=== PATIENT | male | born 1980 | race Hispanic/Latino ===

== ENCOUNTER 2023-07-12 23:22 | Emergency (ER) | payer SELFPAY ==
--- NOTE | ~2023-07-12 | XR_ITS ---
Clinical Indication: Chest pain PA and lateral views of the chest: Comparison: None Findings: The lungs are clear, without evidence of focal consolidation or pleural effusion. Cardiome diastinal silhouette is within normal limits. Bones and soft tissues are unremarkable. Impression: Normal chest. Reviewed, dictated and finalized at location . Impression: Normal chest.
--- NOTE | 2023-07-12 23:25 | ECG_ITS ---
Measurements Intervals [place] Rate: 110 P: 20 NE: 180 QRS: -26 QRSD: 100 T: 39 QT: 329 QTc: 445 Interpretive Statements SINUS TACHYCARDIA DELAYED PRECORDIAL R/S TRANSITION ABNORMAL ECG NO PREVIOUS ECG AVAILABLE FOR COMPARISON Electronically Signed On 07-13-2023 6:37:37 CDT by All Pickett D.O.
[2023-07-12 23:43] VITALS: BP 200/88; PULSE 88; RESP 16; TEMP 37; O2SAT 99
[2023-07-12 23:51] LABS: Basophils Absolute Auto 0.1 K/mm3 (0.0-0.1); Basophils Percent Auto 0.4 % (0.2-1.2); Eosinophils Absolute Auto 0.1 K/mm3 (0-0.3); Eosinophils Percent Auto 0.6 % (0-4.4); Hematocrit 43.8 % (42.0-52.0); Hemoglobin 15.5 g/dL (14.0-18.0); Immature Granulocyte Absolute 0.05 K/mm3 (0.00-0.031); Immature Granulocyte Percent A 0.4 % (0-0.5); Lymphocytes Percent Auto 45.2 % (18.3-44.2); Mean Corpuscular HGB Conc 35.4 g/dl (32-36); Mean Corpuscular Hemoglobin 32.2 pg (26-34); Mean Corpuscular Volume 91.1 fl (80-100); Mean Platelet Volume 9.4 fl (7.4-10.4); Monocytes Absolute Auto 0.9 K/mm3 (0.1-0.6); Monocytes Percent Auto 6.4 % (2.6-8.5); Neutrophils Absolute Auto 6.3 K/mm3 (1.3-6.7); Platelet Count Result 277 k/mm3 (150-375); Red Blood Count 4.81 M/mm3 (4.6-6.20); Red Cell Distribution Width 11.8 % (11.5-14.5); White Blood Count 13.5 K/mm3 (4.5-10.0)
[2023-07-13 00:02] LABS: INR 0.9; Prothrombin Time 12.5 Seconds (11.1-14.7)
[2023-07-13 00:03] LABS: Alanine Aminotransferase 33 U/L (6-50); Albumin Level 4.8 g/dL (3.5-5.1); Alkaline Phosphatase 109 U/L (38-126); Anion Gap 8 mmol/L (8-16); Aspartate Amino Transferase 29 U/L (17-59); Bilirubin,Total 0.5 mg/dL (0.2-1.3); Blood Urea Nitrogen 18 mg/dL (9-20); Calcium 8.9 mg/dL (8.4-10.2); Carbon Dioxide 26 mmol/L (22-30); Chloride 104 mmol/L (98-107); Estimated CRCL calculation 115 ml/min; Estimated Glomerular Filt Rate > 60; Glucose 116 mg/dL (65-110); Lipase 74 U/L (23-300); Partial Thromboplastin Time 24.6 SECONDS (22.3-36.8); Potassium 3.4 mmol/L (3.4-5.0); Sodium 138 mmol/L (137-145)
[2023-07-13 00:15] LABS: Troponin I < 0.012 ng/mL (0.000-0.034)
[2023-07-13 01:47] VITALS: PULSE 106
[2023-07-13 02:00] VITALS: BP 144/96; PULSE 100; RESP 16; O2SAT 96
[2023-07-13 02:52] VITALS: BP 144/90; PULSE 95; RESP 17; O2SAT 96
[2023-07-13 04:02] LABS: Troponin I < 0.012 ng/mL (0.000-0.034)
--- NOTE | 2023-07-13 05:28 | ED.CHESTPAIN ---
HPI - Chest Pain General Chief Complaint: Chest Pain Stated Complaint: high blood pressure Time Seen by Provider: 07/13/23 05:27 Source: patient Limitations: no limitations History of Present Illness HPI narrative: Patient is a 43-year-old male presented to the emergency department for high blood pressure. Patient states that he felt ?off? throughout the day and went to [employer] to check his blood pressure and noted that it was elevated prompting him to seek further care in the emergency department today. Patient is able to walk more frequently to check his blood pressure and he does not see a primary care physician on regular basis. Patient denies any family history of her disease. Patient denies tobacco use. Patient denies shortness of breath, abdominal pain, nausea, vomiting, diaphoresis, recent illness, recent injuries, history of any medication use. Patient had any specific chest pain and when asked about any means by failure of patient describes it is more of a feeling of anxiety and is if something just was not right. Patient denies vision changes, difficulty urinating, decreased tear production, hematuria, cough, lower extremity swelling, orthopnea, fever, palpitations, headache, numbness, weakness, paresthesias, or rash. 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 Patient has never seen a instructional services specialist. Never been treated fro blood pressure being high before. He tried garlic hoping that would help his blood pressure. Related Data Allergies Allergy/AdvReac Type Severity Reaction Status Date / Time No Known Allergies Allergy Verified 07/13/23 01:48 Review of Systems Review of Systems: A 10 system review of systems was completed on the patient and is negative except for what is stated in the HPI. Nursing and ancillary documentation was reviewed. PMFSH Comments At time of signature, I have reviewed and agree with nursing past medical, surgical, social and family history unless otherwise noted. Please see the nursing chart for further information. There is no relevant family history pertinent to the presenting complaint. Exam Narrative: CONST: No acute distress. Well nourished. HENMT: Head is normocephalic and atraumatic. Moist mucous membranes. No posterior oropharynx erythema. EYES: No conjunctival icterus, injection, or pallor. PERRL. NECK: No meningeal signs. No JVD. RESP: Able to speak in full sentences. Normal respiratory effort. CTAB. CARDIO: Regular rate. Regular rhythm. 2+ DP and radial pulses bilaterally. GI: Nondistended. No tenderness to palpation. Soft. : No CVA tenderness to palpation. SKIN: No rashes or lesions noted on exposed skin. NEURO: Oriented x3. Moves all extremities. EXTREM: No pedal edema. PSYCH: Normal affect. Course Vital Signs Vital signs: Vital Signs Temperature 98.6 F 07/12/23 23:43 Pulse Rate 88 07/12/23 23:43 Respiratory Rate 16 07/12/23 23:43 Blood Pressure 200/88 H 07/12/23 23:43 Pulse Oximetry 99 07/12/23 23:43 Oxygen Delivery Room Air 07/12/23 23:43 Temperature 98.6 F 07/12/23 23:43 Pulse Rate 86 07/13/23 06:25 Respiratory Rate 17 07/13/23 02:52 Blood Pressure 139/99 H 07/13/23 06:25 Pulse Oximetry 98 07/13/23 06:25 Oxygen Delivery Room Air 07/13/23 01:47 MDM - Chest Pain MDM Narrative Medical decision making narrative: Patient presented to the emergency department complaining of high blood pressure. Initial vitals are remarkable for hypertension. Patient mentioned chest pain to triage nurse and therefore a cardiac work up was done. Patient is otherwise asymptomatic without confusion, chest pain, hematuria, or SOB. BP today was much improved after initial vitals and patient is resting comfortably with no chest pain on my assessment. Patient is not
[2023-07-13 06:05] VITALS: BP 139/99; PULSE 86; O2SAT 98
[2023-07-13 06:25] VITALS: BP 139/99; PULSE 86; O2SAT 98
== END 2023-07-13 06:24 | disposition home or self-care (01) ==
PROVIDERS: Emergency Provider Student in an Organized Health Care Education/Training Program
DX: I10 Essential (primary) hypertension (principal); R07.89 Other chest pain; R00.0 Tachycardia, unspecified
CPT/HCPCS: 36415; 71046; 80053; 83690; 84484; 85025; 85610; 85730; 93005; 99284

== ENCOUNTER 2024-08-15 00:54 | Emergency (ER) | payer SELFPAY ==
--- NOTE | ~2024-08-15 | XR_ITS ---
EXAMINATION: XR chest 1V portable DATE: 08/15/2024 02:32 INDICATION: Shortness of breath. Right chest pain. TECHNIQUE: A single frontal view of the chest was obtained. COMPARISON: Chest 2 views 07/12/2023 FINDINGS: There is no pneumonia, pleural effusion, or pneumothorax. The heart size is normal. IMPRESSION: 1. No acute cardiopulmonary disease. Reviewed, dictated and finalized at location A.
[2024-08-15 01:00] VITALS: BP 166/98; PULSE 88; RESP 16; TEMP 36.4; O2SAT 100
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
--- NOTE | 2024-08-15 02:36 | ECG_ITS ---
Test Date: 2024-08-15 02:48:43 Measurements Intervals [place] Rate: 75 P: 17 HI: 194 QRS: -4 QRSD: 104 T: 22 QT: 365 QTc: 410 Interpretive Statements SINUS RHYTHM No previous ECG available for comparison Electronically Signed On 08-15-2024 09:43:44 CDT by Elias Cotto M.D.
[2024-08-15 03:04] LABS: Basophils Percent Auto 0.5 % (0.2-1.2); Eosinophils Absolute Auto 0.1 K/mm3 (0-0.3); Eosinophils Percent Auto 0.6 % (0-4.4); Hematocrit 41.9 % (42.0-52.0); Hemoglobin 14.6 g/dL (14.0-18.0); Immature Granulocyte Absolute 0.02 K/mm3 (0.00-0.031); Immature Granulocyte Percent A 0.2 % (0-0.5); Lymphocytes Absolute Auto 3.25 K/mm3 (0.9-3.2); Lymphocytes Percent Auto 38.2 % (18.3-44.2); Mean Corpuscular HGB Conc 34.8 g/dl (32-36); Mean Corpuscular Hemoglobin 31.7 pg (26-34); Mean Corpuscular Volume 90.9 fl (80-100); Mean Platelet Volume 9.7 fl (7.4-10.4); Monocytes Absolute Auto 0.6 K/mm3 (0.1-0.6); Monocytes Percent Auto 7.2 % (2.6-8.5); Neutrophils Absolute Auto 4.5 K/mm3 (1.3-6.7); Neutrophils Percent Auto 53.3 % (45.5-73.1); Platelet Count Result 242 k/mm3 (150-375); Red Blood Count 4.61 M/mm3 (4.6-6.20); Red Cell Distribution Width 11.9 % (11.5-14.5); White Blood Count 8.5 K/mm3 (4.5-10.0)
[2024-08-15 03:19] LABS: Alanine Aminotransferase 33 U/L (6-50); Albumin Level 4.4 g/dL (3.5-5.1); Alkaline Phosphatase 78 U/L (38-126); Anion Gap 9 mmol/L (4-12); Aspartate Amino Transferase 24 U/L (17-59); Bilirubin,Total 0.4 mg/dL (0.2-1.3); Blood Urea Nitrogen 16 mg/dL (9-20); Calcium 9.3 mg/dL (8.4-10.2); Carbon Dioxide 27 mmol/L (22-30); Chloride 103 mmol/L (98-107); Estimated CRCL calculation 126 ml/min; Estimated Glomerular Filt Rate > 60; Glucose 95 mg/dL (65-110); Magnesium 2.2 mg/dL (1.6-2.3); Potassium 3.8 mmol/L (3.4-5.0); Sodium 139 mmol/L (137-145)
[2024-08-15 03:33] LABS: Troponin I < 0.012 ng/mL (0.000-0.034)
[2024-08-15 03:40] VITALS: RESP 16; O2SAT 98
[2024-08-15 03:59] VITALS: BP 108/77; PULSE 86; RESP 18; O2SAT 98
== END 2024-08-15 04:00 | disposition home or self-care (01) ==
PROVIDERS: Emergency Provider Emergency Medicine
DX: S16.1XXA Strain of muscle, fascia and tendon at neck level, initial encounter (principal); M50.20 Other cervical disc displacement, unspecified cervical region; V89.2XXD Person injured in unspecified motor-vehicle accident, traffic, subsequent encounter
CPT/HCPCS: 36415; 71045; 80053; 83735; 84484; 85025; 93005; 99284

== ENCOUNTER 2024-10-21 19:21 | Emergency (ER) | payer SELFPAY ==
--- NOTE | ~2024-10-21 | XR_ITS ---
XR chest 2V Ordering provider: Dayday Hraman History: 44 years Male with . cp . Comparison: August 15, 2024 FINDINGS: MEDIASTINUM: The cardiac silhouette is not enlarged. LUNGS: No effusions or pneumothorax. Minimal opacification in the left and right lung base medially i s seen which may indicate atelectasis versus pneumonia. OTHER: No free air under the diaphragm. IMPRESSION: Bibasilar atelectasis versus pneumonia. Reviewed, dictated and finalized at location A. R
[2024-10-21 19:42] VITALS: BP 167/90; PULSE 121; RESP 15; TEMP 36.9; O2SAT 99
--- NOTE | 2024-10-21 19:47 | ECG_ITS ---
Test Date: 2024-10-21 19:50:53 Measurements Intervals [place] Rate: 132 P: 37 UT: 148 QRS: -80 QRSD: 93 T: 34 QT: 294 QTc: 437 Interpretive Statements SINUS TACHYCARDIA LEFT ANTERIOR FASCICULAR BLOCK [QRS AXIS <= -45, QR IN I, RS IN II] POSSIBLE ANTERIOR MYOCARDIAL INFARCTION , OF INDETERMINATE AGE [30 ms Q WAVE IN V3/V4, OR R < 0.2 mV IN V4] Compared to ECG 08/15/2024 02:48:43 Left anterior fascicular block now present Myocardial infarct finding now present Sinus rhythm no longer present Electronically Signed On 10-22-2024 22:54:13 OPHTHALMIC NURSE by Rosina Lyons M.D.
[2024-10-21 20:02] LABS: Basophils Percent Auto 0.1 % (0.2-1.2); Hemoglobin 15.7 g/dL (14.0-18.0); Immature Granulocyte Absolute 0.04 K/mm3 (0.00-0.031); Immature Granulocyte Percent A 0.4 % (0-0.5); Lymphocytes Percent Auto 13.2 % (18.3-44.2); Mean Corpuscular HGB Conc 35.7 g/dl (32-36); Mean Corpuscular Volume 89.8 fl (80-100); Mean Platelet Volume 9.5 fl (7.4-10.4); Monocytes Absolute Auto 0.1 K/mm3 (0.1-0.6); Monocytes Percent Auto 1.1 % (2.6-8.5); Neutrophils Absolute Auto 9.7 K/mm3 (1.3-6.7); Neutrophils Percent Auto 85.2 % (45.5-73.1); Platelet Count Result 281 k/mm3 (150-375); Red Cell Distribution Width 12.1 % (11.5-14.5); White Blood Count 11.3 K/mm3 (4.5-10.0)
[2024-10-21 20:18] LABS: INR 0.9; Prothrombin Time 12.4 Seconds (11.1-14.7)
[2024-10-21 20:19] LABS: Partial Thromboplastin Time 23.3 Seconds (22.3-36.8)
[2024-10-21 20:27] LABS: Alanine Aminotransferase 35 U/L (6-50); Albumin Level 4.8 g/dL (3.5-5.1); Alkaline Phosphatase 134 U/L (38-126); Anion Gap 9 mmol/L (4-12); Aspartate Amino Transferase 26 U/L (17-59); Bilirubin,Total 0.6 mg/dL (0.2-1.3); Blood Urea Nitrogen 18 mg/dL (9-20); Calcium 9.8 mg/dL (8.4-10.2); Carbon Dioxide 22 mmol/L (22-30); Chloride 108 mmol/L (98-107); Estimated CRCL calculation 101 ml/min; Estimated Glomerular Filt Rate > 60; Glucose 259 mg/dL (65-110); Lipase 74 U/L (23-300); Potassium 4.3 mmol/L (3.4-5.0); Sodium 139 mmol/L (137-145)
[2024-10-21 20:35] LABS: Troponin I < 0.012 ng/mL (0.000-0.034)
--- NOTE | 2024-10-21 23:32 | PC.NURSE ---
Pt ambulated to director of front office and stated he feels better and is going to leave.
== END 2024-10-22 00:58 | disposition left against medical advice (07) ==
LOC: ANHED 10-22 00:04
PROVIDERS: Emergency Provider Emergency Medicine
DX: R73.9 Hyperglycemia, unspecified (principal)
CPT/HCPCS: 36415; 71046; 80053; 83690; 84484; 85025; 85610; 85730; 93005; 99199

== ENCOUNTER 2025-01-09 02:46 | Emergency (ER) | payer SELFPAY ==
--- NOTE | ~2025-01-09 | CT_ITS ---
CT of the Abdomen and Pelvis: Indication: Abdominal pain Technique: 2.5 mm axial scans were obtained through the abdomen and pelvis following intravenous adm inistration of 100 cc of Omnipaque 350. Dose reduction technique was used on this scan by utilizing a utomated exposure control and iterative reconstruction technique. The dose-length product (DLP) was 9 04.85 mGy-cm. Findings: Scans through the lung bases are unremarkable. The liver, spleen, pancreas, gallbladder, adrenals and kidneys are within normal limits. No evidence of aortic aneurysm. No lymphadenopathy. No bowel obstruction or bowel wall thickening. There is no evidence to suggest acute appendicitis. Images through the pelvis were performed. Urinary bladder unremarkable. No pelvic mass seen. No ascit es. Impression: No significant abnormalities seen. Reviewed, dictated and finalized at location . Impression: No significant abnormalities seen.
[2025-01-09 02:47] VITALS: BP 164/98; PULSE 111; RESP 18; TEMP 36.4; O2SAT 97
[2025-01-09 03:01] LABS: Basophils Absolute Auto 0.1 K/mm3 (0.0-0.1); Basophils Percent Auto 0.4 % (0.2-1.2); Eosinophils Absolute Auto 0.1 K/mm3 (0-0.3); Hematocrit 44.9 % (42.0-52.0); Hemoglobin 15.7 g/dL (14.0-18.0); Immature Granulocyte Absolute 0.04 K/mm3 (0.00-0.031); Immature Granulocyte Percent A 0.3 % (0-0.5); Lymphocytes Absolute Auto 5.13 K/mm3 (0.9-3.2); Lymphocytes Percent Auto 40.8 % (18.3-44.2); Mean Corpuscular Hemoglobin 31.5 pg (26-34); Mean Platelet Volume 9.1 fl (7.4-10.4); Monocytes Absolute Auto 0.7 K/mm3 (0.1-0.6); Monocytes Percent Auto 5.7 % (2.6-8.5); Neutrophils Absolute Auto 6.5 K/mm3 (1.3-6.7); Neutrophils Percent Auto 51.8 % (45.5-73.1); Platelet Count Result 303 k/mm3 (150-375); Red Blood Count 4.99 M/mm3 (4.6-6.20); Red Cell Distribution Width 11.8 % (11.5-14.5); White Blood Count 12.6 K/mm3 (4.5-10.0)
[2025-01-09 03:16] LABS: Alanine Aminotransferase 48 U/L (6-50); Albumin Level 4.6 g/dL (3.5-5.1); Alkaline Phosphatase 114 U/L (38-126); Anion Gap 15 mmol/L (4-12); Aspartate Amino Transferase 27 U/L (17-59); Bilirubin,Total 0.4 mg/dL (0.2-1.3); Blood Urea Nitrogen 13 mg/dL (9-20); Calcium 9.1 mg/dL (8.4-10.2); Carbon Dioxide 22 mmol/L (22-30); Chloride 103 mmol/L (98-107); Estimated Glomerular Filt Rate > 60; Glucose 121 mg/dL (65-110); Lipase 97 U/L (23-300); Potassium 3.5 mmol/L (3.4-5.0); Sodium 140 mmol/L (137-145)
[2025-01-09] MEDS: DICYCLOMINE HCL INJ 20 MG/2 ML VIAL IM (04:01)
[2025-01-09] MEDS: ONDANSETRON INJ 4 MG/2 ML VIAL IV PUSH (04:01)
[2025-01-09] MEDS: SODIUM CHLORIDE 0.9% IV 1,000 ML 999 ML IV CONT (04:02)
[2025-01-09 04:06] VITALS: BP 134/90; PULSE 92; RESP 15; O2SAT 96
--- NOTE | 2025-01-09 04:16 | ED.GENADULT ---
HPI - General Adult General Chief complaint: Nausea/Vomiting/Diarrhea Stated complaint: diarrhea Time Seen by Provider: 01/09/25 03:34 History of Present Illness HPI narrative: Patient is a 44-year-old gentleman who presents emergency department with chief complaint of diarrhea. The patient reports that about a week ago he had an episode of diarrhea and then reports that today he started having small amount episodes of loose stools the patient states he feels though he needs to go to the bathroom has a small amount of liquid stool and then the bowel movement will stop patient states he has a cramping like sensation throughout his abdomen reports he is little uncomfortable in the right lower quadrant Related Data Allergies Allergy/AdvReac Type Severity Reaction Status Date / Time No Known Allergies Allergy Verified 10/21/24 19:48 Review of Systems Review of Systems: A 10 system review of systems was completed on the patient and is negative except for what is stated in the HPI. Nursing and ancillary documentation was reviewed. Exam Narrative: GENERAL: Well-appearing, well-nourished, and in no acute distress. HEAD: Normocephalic, atraumatic. EYES: PERRLA and EOMI. ENT: Nares clear, no rhinorrhea or epistaxis. Mucous membranes moist. NECK: Supple. CHEST: Clear to auscultation. No respiratory distress. HEART: Regular rate and rhythm. No murmur heard. Normal peripheral pulses. ABDOMEN: Soft, mild tenderness to palpation right lower quadrant, nondistended, normal active bowel sounds. : Hemorrhoids present that are nonthrombosed EXTREMITIES: Normal range of motion. No edema. SKIN: Warm, dry, no rash. NEURO: No focal deficits. Alert and oriented x3. PSYCH: Normal mood and affect. Course Vital Signs Vital signs: Vital Signs Temperature 36.4 C 01/09/25 02:47 Pulse Rate 111 H 01/09/25 02:47 Respiratory Rate 18 01/09/25 02:47 Blood Pressure 164/98 H 01/09/25 02:47 Pulse Oximetry 97 01/09/25 02:47 Oxygen Delivery Room Air 01/09/25 02:47 Temperature 36.4 C 01/09/25 02:47 Pulse Rate 92 01/09/25 04:06 Respiratory Rate 15 01/09/25 04:06 Blood Pressure 134/90 01/09/25 04:06 Pulse Oximetry 96 01/09/25 04:06 Oxygen Delivery Room Air 01/09/25 02:47 Medical Decision Making [facility] Narrative Medical decision making narrative: Differential diagnosis includes intra-abdominal infection, diverticulitis, colitis, Laboratory studies were obtained showed normal CBC with white count 12.6 electrolytes are within normal limits CT scan of the abdomen pelvis showed no acute abnormality The patient be discharged home with a prescription Bentyl Vital Signs Vital Signs: Vital Signs Temperature 36.4 C 01/09/25 02:47 Pulse Rate 111 H 01/09/25 02:47 Respiratory Rate 18 01/09/25 02:47 Blood Pressure 164/98 H 01/09/25 02:47 Pulse Oximetry 97 01/09/25 02:47 Oxygen Delivery Room Air 01/09/25 02:47 Temperature 36.4 C 01/09/25 02:47 Pulse Rate 92 01/09/25 04:06 Respiratory Rate 15 01/09/25 04:06 Blood Pressure 134/90 01/09/25 04:06 Pulse Oximetry 96 01/09/25 04:06 Oxygen Delivery Room Air 01/09/25 02:47 Lab Data 01/09/25 02:54 01/09/25 02:54 Labs: Lab Results 01/09/25 01/09/25 Range/Units 02:54 05:06 WBC 12.6 H (4.5-10.0) K/mm3 RBC 4.99 (4.6-6.20) M/mm3 Hgb 15.7 (14.0-18.0) g/dL Hct 44.9 (42.0-52.0) % MCV 90.0 (80-100) fl MCH 31.5 (26-34) pg MCHC 35.0 (32-36) g/dl RDW 11.8 (11.5-14.5) % Plt Count 303 (150-375) k/mm3 MPV 9.1 (7.4-10.4) fl Immature Gran % (Auto) 0.3 (0-0.5) % Neut % (Auto) 51.8 (45.5-73.1) % Lymph % (Auto) 40.8 (18.3-44.2) % Door % (Auto) 5.7 (2.6-8.5) % Eos % (Auto) 1.0 (0-4.4) % Baso % (Auto) 0.4 (0.2-1.2) % Lymph # (Auto) 5.13 H (0.9-3.2) K/mm3 Door # (Auto) 0.7 H (0.1-0.6) K/mm3 Eos # (Auto) 0.1 (0-0.3) K/mm3 Baso # (Auto) 0.1 (0.0-0.1) K/mm3 Abs Immat Gran (auto) 0.04 H (0.00-0.031) K/mm3 Absolute Neuts (auto) 6.5 (1.3-6.7) K/mm3 Absolute Nucleated RBC 0.000 (0.0-0.012) K/mm3 Nucleated RBC % 0.0 (0.0-0.2) % Sodium 140 (137-145) mmol/L Potassium 3.5 (3.4-5.0) mmol/L Chloride 103 (98-107) mmol/L Carbon Dioxide 22 (22-30) mmol/L Anion Gap 15 H (4-12) mmol/L BUN 13 D (9-20) mg/dL Creatinine 0.91 (0.7-1.3) mg/dL Estim Creat Clear Calc Not Reportable Estimated GFR > 60 (59 - ) Glucose 121 H (65-110) mg/dL Calcium 9.1 (8.4-10.2) mg/dL Total Bilirubin 0.4 (0.2-1.3) mg/dL AST 27 (17-59) U/L ALT 48 (6-50) U/L Alkaline Phosphatase 114 (38-126) U/L Total Protein 8.0 (6.3-8.2) g/dL Albumin 4.6 (3.5-5.1) g/dL Lipase 97 (23-300) U/L Urine Color Yellow (Yellow) Urine Appearance Clear (Clear) Urine pH 5.5 (5.0-9.0) Ur Specific Equality 1.021 (1.001-1.035) Urine Protein Trace (Negative) mg/dL Urine Glucose (UA) Negative (Negative) mg/dL Urine Ketones Trace H (Negative) mg/dL Ur Blood (Man) Negative (Negative) Urine Nitrate Negative (Negative) Urine Bilirubin Negative (Negative) Urine Urobilinogen 0.2 (<2.0) mg/dL Leukocyte Esterase Rfl Negative (Negative) ELLA/UL Urine RBC 0-2 (0-2) /hpf Urine WBC 0-5 (0-3) /hpf Ur Squamous Epith Cells None seen (Few) /hpf Urine Bacteria None seen /hpf Urine Casts 0-2 Discharge Plan Discharge Clinical Impression: Abdominal pain, Diarrhea, Hemorrhoids Patient Disposition: Home, Self-Care Condition: Stable Instructions: Antibiotic Form, Hemorrhoids (ED), Acute Diarrhea (ED), Abdominal Pain (ED) Patient Language: Portuguese Prescriptions: New dicyclomine 20 mg tablet 20 mg PO QID PRN (Reason: abdominal discomfort) Qty: 20 0RF hydrocortisone acetate 25 mg suppository 25 mg RECTAL BID Qty: 24 0RF No Action hydrocodone-acetaminophen 5-325 mg tablet 1 tablet PO Q8H PRN (Reason: pain) Qty: 10 0RF methocarbamol 750 mg tablet 750 mg PO HS PRN (Reason: muscle pain) Qty: 14 0RF Follow-up/Referrals: Boom Mello MD [Physician] - PHYSICIAN,BRANCH ACCOUNT MANAGER [Primary Care Provider] - Time of Disposition: 06:21
[2025-01-09 05:19] LABS: Add Urine Microscopic? YES; Appearance Urine Clear (Clear); Bacteria Urine None Seen /hpf; Bilirubin Urine Negative (Negative); Blood Urine Negative (Negative); Color Urine Yellow (Yellow); Glucose Urine UA Negative (Negative); Ketones Urine Trace mg/dL (Negative); Leukocyte Esterase Ur Negative LEU/UL (Negative); Nitrate Urine Negative (Negative); Non Pathogenic Casts 0-2; Protein Urine Trace mg/dL (Negative); RBC Urine 0-2 /hpf (0-2); Specific Grav Ur 1.021 (1.001-1.035); Squamous Epithelial Cell Urine None Seen /hpf (Few); Urobilinogen Urine 0.2 mg/dL (<2.0); WBC Urine 0-5 /hpf (0-3); pH Urine 5.5 (5.0-9.0)
[2025-01-09 07:07] VITALS: BP 126/72; PULSE 67; RESP 16; O2SAT 100
== END 2025-01-09 07:08 | disposition home or self-care (01) ==
PROVIDERS: Emergency Provider Emergency Medicine
DX: R19.7 Diarrhea, unspecified (principal); K64.9 Unspecified hemorrhoids; R10.31 Right lower quadrant pain
CPT/HCPCS: 36415; 74177; 80053; 81001; 83690; 85025; 96361; 96372; 96374; 99284; J0500; J2405; J7030; Q9967

== ENCOUNTER 2025-03-31 22:58 | Emergency (ER) | payer SELFPAY ==
--- NOTE | ~2025-03-31 | XR_ITS ---
XR chest 2V Ordering provider: Darwin Springer MD History: 45 years Male with . cp . Comparison: October 21, 2024 FINDINGS: MEDIASTINUM: The cardiac silhouette is not enlarged. LUNGS: No infiltrates, effusions or pneumothorax. OTHER: No free air under the diaphragm. IMPRESSION: No acute cardiopulmonary pathology. Reviewed, dictated and finalized at location A.
[2025-03-31 23:00] VITALS: BP 144/94; PULSE 95; RESP 16; TEMP 36.3; O2SAT 100
--- NOTE | 2025-03-31 23:02 | ECG_ITS ---
Test Date: 2025-03-31 23:10:47 Measurements Intervals [place] Rate: 88 P: 7 IN: 165 QRS: 96 QRSD: 97 T: -7 QT: 346 QTc: 419 Interpretive Statements SINUS RHYTHM RIGHT AXIS DEVIATION INCOMPLETE RIGHT BUNDLE [place]AN[place] BLOCK BORDERLINE R WAVE PROGRESSION, ANTERIOR LEADS MINIMAL Q WAVES- INFERIOR LEADS BORDERLINE ST-T WAVE ABNORMALITY- INFERIOR LEADS BORDERLINE ECG Compared to ECG 10/21/2024 19:50:53 HEART RATE HAS DECREASED Electronically Signed On 04-01-2025 06:25:22 CDT by All Pickett D.O.
[2025-03-31 23:42] VITALS: BP 120/89; O2SAT 97
[2025-03-31 23:46] VITALS: BP 134/95; PULSE 87; RESP 15; O2SAT 98
[2025-03-31 23:48] LABS: Basophils Absolute Auto 0.1 K/mm3 (0.0-0.1); Basophils Percent Auto 0.5 % (0.2-1.2); Eosinophils Absolute Auto 0.1 K/mm3 (0-0.3); Eosinophils Percent Auto 0.7 % (0-4.4); Hematocrit 42.9 % (42.0-52.0); Immature Granulocyte Absolute 0.02 K/mm3 (0.00-0.031); Immature Granulocyte Percent A 0.2 % (0-0.5); Lymphocytes Absolute Auto 3.98 K/mm3 (0.9-3.2); Lymphocytes Percent Auto 39.1 % (18.3-44.2); Mean Corpuscular Hemoglobin 31.2 pg (26-34); Mean Corpuscular Volume 89.2 fl (80-100); Mean Platelet Volume 9.4 fl (7.4-10.4); Monocytes Absolute Auto 0.7 K/mm3 (0.1-0.6); Monocytes Percent Auto 6.7 % (2.6-8.5); Neutrophils Absolute Auto 5.4 K/mm3 (1.3-6.7); Neutrophils Percent Auto 52.8 % (45.5-73.1); Platelet Count Result 259 k/mm3 (150-375); Red Blood Count 4.81 M/mm3 (4.6-6.20); White Blood Count 10.2 K/mm3 (4.5-10.0)
[2025-04-01] VITALS (8 sets, daily range): BP systolic 118–129; BP diastolic 82–94; PULSE 80–88; RESP 12–17; TEMP 36.4; O2SAT 96–97
[2025-04-01 00:07] LABS: Alanine Aminotransferase 39 U/L (6-50); Albumin Level 4.6 g/dL (3.5-5.1); Alkaline Phosphatase 98 U/L (38-126); Anion Gap 9 mmol/L (4-12); Aspartate Amino Transferase 28 U/L (17-59); Bilirubin,Total 0.4 mg/dL (0.2-1.3); Blood Urea Nitrogen 14 mg/dL (9-20); Calcium 9.3 mg/dL (8.4-10.2); Carbon Dioxide 23 mmol/L (22-30); Chloride 106 mmol/L (98-107); Estimated CRCL calculation 117 ml/min; Estimated Glomerular Filt Rate > 60; Glucose 106 mg/dL (65-110); Lipase 80 U/L (23-300); Potassium 3.8 mmol/L (3.4-5.0); Sodium 138 mmol/L (137-145); Total Protein 7.7 g/dL (6.3-8.2)
[2025-04-01 00:10] LABS: INR 0.9; Prothrombin Time 12.2 Seconds (11.1-14.7)
[2025-04-01 00:11] LABS: Partial Thromboplastin Time 24.4 Seconds (22.3-36.8)
[2025-04-01 00:19] LABS: Troponin I < 0.012 ng/mL (0.000-0.034)
--- NOTE | 2025-04-01 01:14 | ED.CHESTPAIN ---
HPI - Chest Pain General Chief Complaint: Chest Pain Stated Complaint: L chest pain Time Seen by Provider: 03/31/25 23:56 Source: patient Mode of arrival: ambulatory Limitations: no limitations History of Present Illness HPI narrative: Patient is a 45-year-old male who presents to the ED with c/o CP. Patient reports CP began around 6pm tonight after eating spicy [place] food. Present throughout his left-sided chest. Denies radiation of the pain. Pain has been fairly persistent since the onset. He attempted taking an antacid in Tylenol at home without improvement, which prompted his presentation. Denies history of similar pain. Denies previous heart disease. Is on medication for high blood pressure, denies history of diabetes, cholesterol, smoking. Denies family history of heart disease. Denies abdominal pain, nausea, vomiting, shortness of breath, pain or swelling in legs. Related Data Allergies Allergy/AdvReac Type Severity Reaction Status Date / Time No Known Allergies Allergy Verified 04/01/25 00:08 Review of Systems Review of Systems: All systems reviewed & are unremarkable except as noted in HPI. All systems reviewed & are unremarkable except as noted in HPI and below Exam Narrative: GENERAL: Well appearing, obese with BMI of 31.3, non-toxic, in no acute distress. HEAD: Normocephalic, atraumatic. RESPIRATORY: Airway patent, respirations nonlabored. Clear to auscultation bilaterally, no rales, rhonchi, wheezing. CARDIOVASCULAR: Regular rate and rhythm without murmurs, rubs, or gallops. ABDOMINAL: Soft, nontender, nondistended. Normoactive BS. MUSCULOSKELETAL: Moves all extremities. No gross deformities. Very mild TTP over L anterior chest wall. No peripheral edema. No calf tenderness. SKIN: Warm, dry, normal color. NEURO: A&O X3. Speech clear. Cranial nerves II-XII grossly intact. Steady gait. No ataxic movements. PSYCHIATRIC: Appropriate mood and affect. Normal interaction. Course Vital Signs Vital signs: Vital Signs Temperature 97.4 F L 03/31/25 23:00 Pulse Rate 95 03/31/25 23:00 Respiratory Rate 16 03/31/25 23:00 Blood Pressure 144/94 H 03/31/25 23:00 Pulse Oximetry 100 03/31/25 23:00 Oxygen Delivery Room Air 03/31/25 23:00 Temperature 97.6 F 04/01/25 00:01 Pulse Rate 80 04/01/25 03:01 Respiratory Rate 12 04/01/25 03:01 Blood Pressure 118/85 04/01/25 03:01 Pulse Oximetry 97 04/01/25 03:01 Oxygen Delivery Room Air 04/01/25 00:04 MDM - Chest Pain MDM Narrative Medical decision making narrative: EKG with sinus rhythm, incomplete right bundle. No significant concerning ischemic changes. Baseline troponin undetectable. Chest x-ray is clear. Basic laboratory studies are otherwise unremarkable. PERC negative. Denying any SOB. No tachycardia, hypoxia, tachypnea. No evidence of DVT on exam. Low suspicion for VTE. HEART score =1 based on RFs (BMI, HTN) Patient given GI cocktail in the ED, reported improvement, was sleeping on reevaluation. 3 hour troponin also undetectable. Low suspicion for ACS at this time. Patient safe for discharge home at this time, recommended close follow-up with PCP and/or Cardiology as outpatient for further evaluation. Given strict return precautions. Patient is in agreement with plan. Feels comfortable going home. Discharged in stable condition. Medical Records Data Attestation: I reviewed the patient's medical records. Lab Data Attestation: I reviewed the patient's lab results. 03/31/25 23:43 03/31/25 23:42 Labs: Lab Results 03/31/25 03/31/25 04/01/25 Range/Units 23:42 23:43 02:26 WBC 10.2 H (4.5-10.0) K/mm3 RBC 4.81 (4.6-6.20) M/mm3 Hgb 15.0 (14.0-18.0) g/dL Hct 42.9 (42.0-52.0) % MCV 89.2 (80-100) fl MCH 31.2 (26-34) pg MCHC 35.0 (32-36) g/dl RDW 12.0 (11.5-14.5) % Plt Count 259 (150-375) k/mm3 MPV 9.4 (7.4-10.4) fl Immature Gran % (Auto) 0.2 (0-0.5) % Neut % (Auto) 52.8 (45.5-73.1) % Lymph % (Auto) 39.1 (18.3-44.2) % [place] % (Auto) 6.7 (2.6-8.5) % Eos % (Auto) 0.7 (0-4.4) % Baso % (Auto) 0.5 (0.2-1.2) % Lymph # (Auto) 3.98 H (0.9-3.2) K/mm3 [place] # (Auto) 0.7 H (0.1-0.6) K/mm3 Eos # (Auto) 0.1 (0-0.3) K/mm3 Baso # (Auto) 0.1 (0.0-0.1) K/mm3 Abs Immat Gran (auto) 0.02 (0.00-0.031) K/mm3 Absolute Neuts (auto) 5.4 (1.3-6.7) K/mm3 Absolute Nucleated RBC 0.000 (0.0-0.012) K/mm3 Nucleated RBC % 0.0 (0.0-0.2) % PT 12.2 (11.1-14.7) Seconds INR 0.9 APTT 24.4 (22.3-36.8) Seconds Sodium 138 (137-145) mmol/L Potassium 3.8 (3.4-5.0) mmol/L Chloride 106 (98-107) mmol/L Carbon Dioxide 23 (22-30) mmol/L Anion Gap 9 (4-12) mmol/L BUN 14 (9-20) mg/dL Creatinine 0.75 (0.7-1.3) mg/dL Estim Creat Clear Calc 117 ml/min Estimated GFR > 60 (59 - ) Glucose 106 (65-110) mg/dL Calcium 9.3 (8.4-10.2) mg/dL Total Bilirubin 0.4 (0.2-1.3) mg/dL AST 28 (17-59) U/L ALT 39 (6-50) U/L Alkaline Phosphatase 98 (38-126) U/L Troponin I < 0.012 < 0.012 (0.000-0.034) ng/mL Total Protein 7.7 (6.3-8.2) g/dL Albumin 4.6 (3.5-5.1) g/dL Lipase 80 (23-300) U/L Imaging Data Attestation: I personally reviewed and interpreted this imaging study as follows: Radiologist's impression: ITS Impressions Chest X-Ray 03/31/25 23:27 IMPRESSION: No acute cardiopulmonary pathology. ECG Data EKG #1: Attestation: I personally reviewed and interpreted this ECG as follows: ECG completion date: 03/31/25 ECG completion time: 23:10 EKG Interpretation: normal rate (88), sinus rhythm, non-specific ST changes and RBBB (incomplete) Discharge Plan Discharge Clinical Impression: Atypical chest pain Patient Disposition: Home Condition: Stable Instructions: Antibiotic Form, Chest Pain (ED), Chest Wall Pain (ED) Additional Instructions: Your work up here was reassuring. You may continue Tylenol and ibuprofen as needed for pain. Recommend close follow-up with your primary care doctor and/or Cardiology for further evaluation. Return to the ED for worsening or severe chest pain, difficulty breathing or feeling short of breath, pain or swelling in your legs, unable to keep down food or drink, or any other symptoms of concern. Patient Language: Telugu Prescriptions: No Action hydrocodone-acetaminophen 5-325 mg tablet 1 tablet PO Q8H PRN (Reason: pain) Qty: 10 0RF methocarbamol 750 mg tablet 750 mg PO HS PRN (Reason: muscle pain) Qty: 14 0RF dicyclomine 20 mg tablet 20 mg PO QID PRN (Reason: abdominal discomfort) Qty: 20 0RF hydrocortisone acetate 25 mg suppository 25 mg RECTAL BID Qty: 24 0RF Follow-up/Referrals: Saturnino Alvarado MD [Physician] - (CARDIOLOGY) PHYSICIAN,FOUNDER [Primary Care Provider] - Time of Disposition: 02:58 Quality HEART score for chest pain patients History: slightly suspicious ECG: normal Age: < or = to 45 years Risk factors: 1 or 2 risk factors Troponin: < or = to 1x normal limit Heart score: 1
[2025-04-01] MEDS: BELLADONNA ALK/PHENOB ELIX 10 ML, MAG HYDROX/ALUMINUM HYD/SIMETH 30 ML, LIDOCAINE 2% VI... PO (01:25)
--- NOTE | 2025-04-01 02:16 | ECG_ITS ---
Test Date: 2025-04-01 02:21:49 Measurements Intervals [place] Rate: 75 P: 14 IA: 185 QRS: -16 QRSD: 97 T: 20 QT: 373 QTc: 418 Interpretive Statements SINUS RHYTHM INCOMPLETE RIGHT BUNDLE BRANCH BLOCK POOR R WAVE PROGRESSION BORDERLINE ECG Compared to ECG 03/31/2025 23:10:47 NO SIGNIFICANT CHANGE Electronically Signed On 04-01-2025 10:21:19 CDT by All Pickett D.O.
[2025-04-01 02:56] LABS: Troponin I < 0.012 ng/mL (0.000-0.034)
[2025-04-01] MEDS: KETOROLAC 30 MG/ML VIAL (*BKC) IV PUSH (02:58)
== END 2025-04-01 03:02 | disposition home or self-care (01) ==
PROVIDERS: Emergency Medicine; Emergency Provider Physician Assistant
DX: R07.89 Other chest pain (principal); I45.10 Unspecified right bundle-branch block; I10 Essential (primary) hypertension
CPT/HCPCS: 36415; 71046; 80053; 83690; 84484; 85025; 85610; 85730; 93005; 96374; 99284; A9270; J1885

== ENCOUNTER 2025-04-04 08:55 | Emergency (ER) | payer SELFPAY ==
[2025-04-04 09:07] VITALS: BP 147/102; PULSE 86; RESP 16; TEMP 36.6; O2SAT 98
--- NOTE | 2025-04-04 09:17 | ED.MALEGU ---
HPI - Male Genitourinary General Chief complaint: Urogenital-Male Stated complaint: urinary frequency Time Seen by Provider: 04/04/25 09:05 Source: patient Mode of arrival: ambulatory Limitations: no limitations History of Present Illness HPI Narrative: Patient is a 45 y/o male who presents to the ED with c/o urinary frequency. Patient reports over the last 3 days, he has been having urinary frequency. States he feels as though he needs to urinate every hour or so. States he is only urinating small amounts each time. Sometimes does not feel as though he is emptying his bladder fully. Denies dysuria, hematuria, abdominal pain, back pain, nausea, vomiting, fevers. Denies history of similar symptoms. Denies concern for STDs. Related Data Allergies Allergy/AdvReac Type Severity Reaction Status Date / Time No Known Allergies Allergy Verified 04/04/25 08:55 Review of Systems Review of Systems: All systems reviewed & are unremarkable except as noted in HPI. All systems reviewed & are unremarkable except as noted in HPI and below Exam Narrative: GENERAL: Well appearing, obese with BMI of 34.0, non-toxic, in no acute distress. HEAD: Normocephalic, atraumatic. RESPIRATORY: Airway patent, respirations nonlabored. Clear to auscultation bilaterally, no rales, rhonchi, wheezing. CARDIOVASCULAR: Regular rate and rhythm without murmurs, rubs, or gallops. ABDOMINAL: Soft, nontender, nondistended. Normoactive BS. No CVA tenderness MUSCULOSKELETAL: Moves all extremities. No gross deformities. SKIN: Warm, dry, normal color. NEURO: A&O X3. Speech clear. PSYCHIATRIC: Appropriate mood and affect. Normal interaction. Course Vital Signs Vital signs: Vital Signs Temperature 97.8 F 04/04/25 09:07 Pulse Rate 86 04/04/25 09:07 Respiratory Rate 16 04/04/25 09:07 Blood Pressure 147/102 H 04/04/25 09:07 Pulse Oximetry 98 04/04/25 09:07 Oxygen Delivery Room Air 04/04/25 09:07 Temperature 97.8 F 04/04/25 09:56 Pulse Rate 78 04/04/25 09:56 Respiratory Rate 16 04/04/25 09:56 Blood Pressure 134/80 04/04/25 09:56 Pulse Oximetry 100 04/04/25 09:56 Oxygen Delivery Room Air 04/04/25 09:07 MDM - Male Genitourinary MDM Narrative Medical decision making narrative: UA is completely clear Post void residual bladder scan is only 40mL Denies any other systemic symptoms to suggest need for further labs or imaging at this time. Denying any back or abdominal pain. Denies fevers, nausea, vomiting. Discussed possibility of prostate issue. Recommended follow-up with urology for further evaluation. Given return precautions. He agrees with plan. Discharged in stable condition. Medical Records Attestation: I reviewed the patient's medical records. Lab Data Attestation: I reviewed the patient's lab results. Labs: Lab Results 04/04/25 Range/Units 09:12 Urine Color Yellow (Yellow) Urine Appearance Clear (Clear) Urine pH 6.0 (5.0-9.0) Ur Specific [place] 1.015 (1.001-1.035) Urine Protein Negative (Negative) mg/dL Urine Glucose (UA) Negative (Negative) mg/dL Urine Ketones Negative (Negative) mg/dL Ur Blood (Man) Negative (Negative) Urine Nitrate Negative (Negative) Urine Bilirubin Negative (Negative) Urine Urobilinogen 0.2 (<2.0) mg/dL Leukocyte Esterase Rfl Negative (Negative) ELLA/UL Discharge Plan Discharge Clinical Impression: Urinary frequency Patient Disposition: Home Condition: Stable Instructions: Antibiotic Form, Enlarged Prostate (BPH) (ED), Urinary Urgency and Frequency (DC) Additional Instructions: Continue to monitor symptoms. Follow-up with urology for further evaluation. Contact office to make appointment. Return to the ED if you experience severe pain, difficulty urinating, persistent fevers, unable to keep down food or drink, or any other symptoms of concern. Patient Language: Italian Prescriptions: No Action hydrocodone-acetaminophen 5-325 mg tablet 1 tablet PO Q8H PRN (Reason: pain) Qty: 10 0RF methocarbamol 750 mg tablet 750 mg PO HS PRN (Reason: muscle pain) Qty: 14 0RF dicyclomine 20 mg tablet 20 mg PO QID PRN (Reason: abdominal discomfort) Qty: 20 0RF hydrocortisone acetate 25 mg suppository 25 mg RECTAL BID Qty: 24 0RF Follow-up/Referrals: Rob Oneill MD [Physician] - (UROLOGY) UNKNOWN,DOCTOR [Primary Care Provider] - Time of Disposition: 09:48
[2025-04-04 09:22] LABS: Bacteria Urine None Seen /hpf; Non Pathogenic Casts 0-2; RBC Urine 0-2 /hpf (0-2); Squamous Epithelial Cell Urine None Seen /hpf (Few); WBC Urine 0-5 /hpf (0-3)
[2025-04-04 09:25] LABS: Add Urine Microscopic? NO; Color Urine Yellow (Yellow)
[2025-04-04 09:26] LABS: Appearance Urine Clear (Clear); Bilirubin Urine Negative (Negative); Blood Urine Negative (Negative); Glucose Urine UA Negative (Negative); Ketones Urine Negative (Negative); Nitrate Urine Negative (Negative); Protein Urine Negative (Negative); Specific Grav Ur 1.015 (1.001-1.035)
[2025-04-04 09:27] LABS: Leukocyte Esterase Ur Negative LEU/UL (Negative); Urobilinogen Urine 0.2 mg/dL (<2.0)
[2025-04-04 09:56] VITALS: BP 134/80; PULSE 78; RESP 16; TEMP 36.6; O2SAT 100
== END 2025-04-04 09:59 | disposition home or self-care (01) ==
PROVIDERS: Emergency Provider Physician Assistant
DX: R35.0 Frequency of micturition (principal)
CPT/HCPCS: 81003; 99283